=== PATIENT | male | born 1990 | race Caucasian/White ===

== ENCOUNTER 2024-12-07 16:47 | Emergency (ER) | payer BC, SELFPAY ==
--- OUTSIDE RECORDS SUMMARY | 2024-12-07 16:49 | XMS_ITS | Clinical Summary ---
Author Organization [facility] Address [address], [place] [address] Care Team Providers Care Net Fisher Name Role Phone Md BO Eddy Primary Care Provider [phone] Source Comments You are receiving this document as you are listed as the primary care provider,follow-up provider, or the patient has been referred to you for consultation.This is in compliance with the Medicare and[facility] EHR Incentive Program,which states Providers who transition their patient to another setting of careor provider of care or refers their patient to another provider of care shouldprovide summary care record for each transition of care or referral. [employer] Allergies No known active allergies Medications Medication Sig Dispensed Refills Start Date End Date Status cetirizine (ZYRTEC) 10 MG tablet Take 10 mg by mouth daily. Active calcium carbonate (TUMS) 500 MG chewable tablet Take 500 mg by mouth daily. Active tamsulosin (FLOMAX) 0.4 MG CAPS capsule Take 1 Capsule by mouth daily. 90 Capsule 3 03/19/2019 Active Additional Information Patient not taking.Reported on 03/31/2019 HYDROcodone-acetam inophen (NORCO) 5-325 MG tablet Take 1 Tablet by mouth every 6 hours as needed for Pain. 12 Tablet 03/19/2019 Active Additional Information Patient not taking.Reported on 03/31/2019 Active Problems No known active problems Social History Tobacco Use Types Packs/Day Years Used Date Smoking Tobacco: Never Smokeless Tobacco: Never Alcohol Use Standard Drinks/Week Comments Yes 0 (1 standard drink = 0.6 oz pur e alcohol) occasional Sex and Gender Information Value Date Recorded Sex Assigned at Not on file Gender Identity Not on file Sexual Orientation Not on file Last Filed Vital Signs Vital Sign Reading Time Taken Comments Blood Pressure 127/87 03/31/2019 10:00 AM CDT Pulse 88 03/19/2019 9:38 AM CDT Temperature 36.4 C (97.5 F) 03/19/2019 9:38 AM CDT Respiratory Rate 16 03/31/2019 10:00 AM CDT Oxygen Saturation 99% 03/19/2019 9:38 AM CDT Inhaled Oxygen Concentration - - Weight 82.1 kg (181 lb) 01/11/2016 1:40 PM CDT Height 186.7 cm (6' 1.5) 11/01/2011 10:52 AM CS T Body Mass Index 23.56 11/01/2011 10:52 AM 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 Plan of Treatment Health Maintenance Due Date Last Done Comments Hep C Screening (Preventive Services) 1991 HIV Screening (Preventive Services) 2007 Adult Preventive Visit 2009 DTaP/Tdap/Td (1 - Tdap) 2010 HepB (1) 2010 COVID-19 Vaccine ( - 2023-2 5 season) 2024 Influenza (#1) 2024 Zoster/Shingles (1 of 2) 2041 HPV Vaccine Aged Out No longer eligi ble based on patient's age to complete this topic HepA Aged Out No longer eligi ble based on patient's age to complete this topic Hib Aged Out No longer eligi ble based on patient's age to complete this topic IPV (Polio) Aged Out No longer eligi ble based on patient's age to complete this topic MCV4 Aged Out No longer eligi ble based on patient's age to complete this topic Pneumococcal Aged Out No longer eligi ble based on patient's age to complete this topic Care Teams Net Fisher Relationship Specialty Start Date End Date [address], , [place] [address] PCP - General 01/30/11
[2024-12-07 17:05] VITALS: BP 144/95; PULSE 67; RESP 18; TEMP 37.1; O2SAT 98; BMI 26.7
--- NOTE | 2024-12-07 17:13 | CRLHL7_ITS ---
For Patients: As a result of the Century Cures Act, medical imaging exams and procedure reports are released immediately into your electronic medical record. You may view this report before your referring provider. If you have questions, please contact your health care provider. Indication: LEFT FLANK PAIN Technique: CT abdomen/pelvis without IV contrast Comparison: CT abdomen/pelvis on 12/07/2024 Findings: Lower chest: Unremarkable Abdomen/pelvis: Liver: Mild hepatic steatosis with some sparing near the gallbladder fossa. No suspicious hepatic lesions. Gallbladder and bile ducts: Unremarkable. Spleen: Similar-appearing mild splenomegaly. Tiny calcified granuloma. Pancreas: Unremarkable. Adrenal glands: Unremarkable. Kidneys/ureters: There is a 2 millimeter calculus in the proximal left ureter causing mild dilatation of the ureter without parviz hydronephrosis. Additional nonobstructing renal calculi bilaterally. GI tract: Unremarkable. Appendix is normal. Vascular structures: Unremarkable. Lymph nodes: Unremarkable. Miscellaneous: Unremarkable. No free air or free fluid. Pelvic Organs: Unremarkable. Bones: Unremarkable for age. Impression: 1. There is a 2 millimeter calculus in the proximal left ureter causing mild dilatation of the upstream ureter without hydronephrosis. 2. Hepatic steatosis. Please note that all CT scans at this facility use dose modulation, iterative reconstruction, and/or weight-based dosing when appropriate to reduce radiation dose to as low as reasonably achievable. Dictated by Collin Ferrer MD @ 12/07/2024 6:18:02 PM (Electronically Signed)
--- NOTE | 2024-12-07 17:15 | ED.GENADULT ---
HPI - General Adult General Chief complaint: Flank Pain Stated complaint: Kidney stone Time Seen by Provider: 12/07/24 17:06 History of Present Illness HPI narrative: 37 year white male has had kidney stones x2 presents with left flank pain over the last few hours. It has been radiating around his anterior abdomen. He has had no palpable tenderness to his back. He has had no gross hematuria. He has had no rigors or chills. No history of UTIs. He has got Flomax and pain medication in the past. He thinks he has had a CT. Both kidney stones been within the last 6 years. No chest pain, breathing problem, fevers, chills. Related Data Home Medications ?Medication ?Instructions ?Recorded ?Confirmed ibuprofen 12/07/24 Allergies Allergy/AdvReac Type Severity Reaction Status Date / Time No Known Drug Allergies Allergy Verified 12/07/24 17:08 Review of Systems Status of ROS: Reports: 6 or more systems reviewed and unremarkable except as noted in History and below PFSH PFS Social History Smoking Status: Never smoker How often do you have a drink containing alcohol: 4 or more times a week AUDIT-C Alcohol total score: 4 Non-prescribed substance use: denies use Exam Narrative: Exam Narrative: Objective: Patient's vital signs are largely within normal limits other than slightly hypertensive afebrile In moderate distress and discomfort riding a little bit No past affect palpable left flank pain Abdomen benign soft Extremities are no edema neurologic nonfocal grossly Const: Vital Signs, click to edit/add: Vital Signs - 24 hr 12/07/24 17:05 12/07/24 17:55 12/07/24 17:55 Temperature 98.8 F Pulse Rate [Left P ulse Oximeter] 67 62 Respiratory Rate 18 14 Blood Pressure [Ri ght Upper Arm] 144/95 H 128/83 Pulse Oximetry 98 95 95 Oxygen Delivery Me thod Room Air Room Air Course Vital Signs Vital signs: Initial Vital Signs Temperature 98.8 F 12/07/24 17:05 Temperature Source Oral 12/07/24 17:05 Pulse Rate 67 12/07/24 17:05 Respiratory Rate 18 12/07/24 17:05 Blood Pressure 144/95 H 12/07/24 17:05 Blood Pressure Mean 111 H 12/07/24 17:05 Blood Pressure Position Sitting 02/09/25 17:05 Pulse Oximetry 98 12/07/24 17:05 Oxygen Delivery Method Room Air 12/07/24 17:05 Vital Signs Temperature 98.8 F 12/07/24 17:05 Pulse Rate 67 12/07/24 17:05 Respiratory Rate 18 12/07/24 17:05 Blood Pressure 144/95 H 12/07/24 17:05 Pulse Oximetry 98 12/07/24 17:05 Oxygen Delivery Method Room Air 12/07/24 17:05 Temperature 98.8 F 12/07/24 17:05 Pulse Rate 62 12/07/24 17:55 Respiratory Rate 14 12/07/24 17:55 Blood Pressure 128/83 12/07/24 17:55 Pulse Oximetry 95 12/07/24 17:55 Oxygen Delivery Method Room Air 12/07/24 17:55 Medications Administered Medications: Discontinued Medications Generic Name Dose Route Start Last Admin Trade Name Freq PRN Reason Stop Dose Admin Sodium Chloride 1,000 mls @ 6,000 mls/hr 12/07/24 17:15 12/07/24 18:15 0.9 % Sodium Chloride 1000 Ml IV 12/07/24 17:24 Infused .Q10M EDITH Infusion Ketorolac Tromethamine 30 mg 12/07/24 17:13 12/07/24 17:35 Ketorolac 30 Mg/Ml Inj IVP 12/07/24 17:14 30 mg ONCE ONE Administration Morphine Sulfate 4 mg 12/07/24 17:13 12/07/24 17:37 Morphine 4 Mg/Ml Inj IVP 12/07/24 17:14 4 mg ONCE ONE Administration Medical Decision Making [facility] Narrative Medical decision making narrative: 34-year-old white male with history of kidney stones with left flank pain rule out urolithiasis. Patient will get a CT scan without contrast of his abdomen pelvis. IV fluid. IV Toradol and morphine. Heme 4 basic 7 CRP and urinalysis. Disposition pending findings above. Importantly I think be good to know the size of the stone. And confirm that there is in fact kidney stone. Addendum 6:30 p.m. patient has some bacteria in his urine, he has a 2 mm proximal left ureteral stone with mild hydro. He feels markedly better. I will send him home with Toradol Elaine and will give him a prescription for Bactrim for few days as well just to ensure he does not get infected kidney stone I think it will pass this 1 without difficulty. He has caught a stone in the past and knows the [place] composition does not really want to do a strainer. He should follow up with regular doctor as needed. Adequate hydration is imperative. Lab Data Labs: Lab Results 12/07/24 12/07/24 Range/Units 17:20 17:30 WBC 7.05 (4.50-11.00) K/uL RBC 5.65 (4.30-5.90) m/uL Hgb 16.6 (13.5-17.5) gm/dL Hct 49.1 (37.0-53.0) % MCV 87 (80-100) fL MCH 29 (26-34) pg MCHC 34 (32-36) gm/dL RDW Coeff of Tito 12.0 (11.5-15.5) % Plt Count 166 (140-440) K/uL Neut % (Auto) 55.7 (42.0-72.0) % Lymph % (Auto) 31.2 (20-44) % [place] % (Auto) 8.7 (0.0-11.0) % Eos % (Auto) 3.8 (0.0-7.0) % Baso % (Auto) 0.3 (0.0-3.0) % Neut # (Auto) 3.93 (1.7-7.0) K/uL Lymph # (Auto) 2.20 (0.90-2.90) K/uL [place] # (Auto) 0.60 (0.00-0.90) K/UL Eos # (Auto) 0.27 (0.00-0.50) K/uL Baso # (Auto) 0.02 (0.00-0.30) K/uL Abs Immat Gran (auto) 0.02 (0.00-0.30) K/uL Imm/Tot Granulo (auto) 0.3 % Sodium 143 (135-149) mmol/L Potassium 3.7 (3.6-5.1) mmol/L Chloride 107 (96-114) mmol/L Carbon Dioxide 25 (20-32) mmol/L Anion Gap 11 (7-15) mEq/L BUN 16 (5-24) mg/dL Creatinine 1.0 (0.5-1.5) mg/dL Estimated Creat Clear 122.16 Estimated GFR 102 ml/min Glucose 82 (60-115) mg/dL Calcium 9.4 (8.4-10.6) mg/dL C-Reactive Protein < 0.5 L (0.5-1.0) mg/dL Urine Color Yellow (Yellow) Urine Appearance Clear (Clear) Urine pH 7.0 (5.0-8.5) Ur Specific [place] 1.020 (1.000-1.030) Urine Protein Negative (Negative) Urine Glucose (UA) Negative (Negative) Urine Ketones Trace A (Negative) Urine Blood 3+ A (Negative) Urine Nitrite Negative (Negative) Urine Bilirubin Negative (Negative) Urine Urobilinogen 2.0 A (0.2-1.0) Ur Leukocyte Esterase Negative (Negative) Urine RBC >100 A (0-2) Urine WBC 0-2 (0-5) Ur Squamous Epith Cells Few (None-Few) Urine Bacteria Many A (None) Discharge Plan Discharge Clinical Impression: Acute left flank pain, Ureterolithiasis Patient Disposition: Home w/ Parent or Adult Condition: Improved Additional Instructions: Light activity, Toradol and ultram as needed, use the Toradol and preference. Adequate hydration. Drink lots of water. Follow-up with regular doctor as needed.instymeds Activity Level: Light activity Discharge Diet: Regular Prescriptions: No Action ibuprofen Stand Alone Forms: [employer] Info Instructions
--- OUTSIDE RECORDS SUMMARY | 2024-12-07 17:21 | XMS_ITS | Clinical Summary ---
Author Organization [facility] Address [address], [place] [address] Care Team Providers Care Director Credit Risk Name Role Phone Md BO Eddy Primary Care Provider Source Comments You are receiving this document as you are listed as the primary care provider,follow-up provider, or the patient has been referred to you for consultation.This is in compliance with the Medicare and[facility] E[facility] Incentive [facility],which states Providers who transition their patient to another setting of careor provider of care or refers their patient to another provider of care shouldprovide summary care record for each transition of care or referral. 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
[2024-12-07 17:27] LABS: Appearance Urine Clear (Clear); Bilirubin Urine Negative (Negative); Blood Urine 3+ (Negative); Color Urine Yellow (Yellow); Glucose Urine Negative (Negative); Ketones Urine Trace (Negative); Leukocyte Esterase Urine Negative (Negative); Nitrite Urine Negative (Negative); Protein Urine Negative (Negative)
[2024-12-07] MEDS: 0.9 % SODIUM CHLORIDE 1000 ml 1,000 ML 6000 ML IV (17:31)
[2024-12-07] MEDS: KETOROLAC 30 MG/ML inj IVP (17:35)
[2024-12-07] MEDS: MORPHINE 4 MG/ML INJ IVP (17:37)
[2024-12-07 17:50] LABS: Basophils Absolute Auto 0.02 K/uL (0.00-0.30); Basophils Percent Auto 0.3 % (0.0-3.0); Eosinophils Absolute Auto 0.27 K/uL (0.00-0.50); Eosinophils Percent Auto 3.8 % (0.0-7.0); Hematocrit 49.1 % (37.0-53.0); Hemoglobin* 16.6 gm/dL (13.5-17.5); Immature Granulocytes Abs Auto 0.02 K/uL (0.00-0.30); Immature Granulocytes Pct Auto 0.3 %; Lymphocytes Percent Auto 31.2 % (20-44); Mean Corpuscular HGB Conc 34 gm/dL (32-36); Mean Corpuscular Hemoglobin 29 pg (26-34); Mean Corpuscular Volume 87 fL (80-100); Monocytes Percent Auto 8.7 % (0.0-11.0); Neutrophils Absolute Auto 3.93 K/uL (1.7-7.0); Neutrophils Percent Auto 55.7 % (42.0-72.0); Platelet Count* 166 K/uL (140-440); Red Blood Count 5.65 m/uL (4.30-5.90); White Blood Count* 7.05 K/uL (4.50-11.00)
[2024-12-07 17:53] LABS: Slide Review Reflex No
[2024-12-07 17:53] LABS: Bacteria Urine Many; RBC Urine >100 (0-2); Squamous Epithelial Cell Urine Few (None-Few); WBC Urine 0-2 (0-5)
[2024-12-07 17:55] VITALS: BP 128/83; PULSE 62; RESP 14; O2SAT 95
[2024-12-07 18:04] LABS: Chloride* 107 mmol/L (96-114); Potassium* 3.7 mmol/L (3.6-5.1); Sodium* 143 mmol/L (135-149)
[2024-12-07 18:07] LABS: Anion Gap 11 mEq/L (7-15); Blood Urea Nitrogen* 16 mg/dL (5-24); Carbon Dioxide* 25 mmol/L (20-32); Est. Creatinine Clearance* 122.16; Estimated Glomerular Filt Rate 102 ml/min
[2024-12-07 18:08] LABS: Calcium* 9.4 mg/dL (8.4-10.6); Glucose* 82 mg/dL (60-115)
[2024-12-07 18:12] LABS: C Reactive Protein* < 0.5 mg/dL (0.5-1.0)
== END 2024-12-07 18:58 | disposition home or self-care (01) ==
PROVIDERS: Emergency Provider Family Medicine
DX: N20.1 Calculus of ureter (principal)
CPT/HCPCS: 36415; 74176; 80048; 81001; 85025; 86140; 87086; 94761; 96374; 96375; 99284; J1885; J2270; J7030